=== PATIENT | female | born 1960 | race Caucasian/White ===

== ENCOUNTER → 2018-02-03 | Outpatient (CLI) | payer BC ==
[~2018-02-03] MED LIST: ADDE20 PO; ADVA250A INH; CLAR5TAB PO; LAMO100T PO; OXYC1TAB63 PO; PERC7.5T13 PO; SERT-129 PO; Z.0.NO CURRENT MEDS
--- NOTE | 2018-02-03 16:41 | RADRPT ---
EXAM DATE/TIME: 02/03/2018 16:27 [place] COMPARISON: No previous studies available for comparison. INDICATIONS : Evaluate for pneumonia, pneumothorax, or communicable disease. Pre op rotator cuff surgery. MEDICAL HISTORY : Asthma. SURGICAL HISTORY : None. ENCOUNTER: Initial ACUITY: 1 day PAIN SCORE: 0/10 LOCATION: Bilateral chest FINDINGS: PA and lateral views of the chest demonstrate the lungs to be symmetrically aerated without evidence of mass, infiltrate or effusion. The cardiomediastinal contours are unremarkable. There is mild comp ression deformity involving a lower thoracic vertebral body of indeterminate age. CONCLUSION: No acute cardiopulmonary disease. Mild compression deformity involving a lower thorac ic vertebral body of indeterminate age. Vladislav Gallegos MD on February 03, 2018 at 16:38 Board Certified Radiologist. This report was verified electronically.
== END ==
LOC: CPRE 15:19
PROVIDERS: ATTEND Orthopaedic Surgery
DX: Z01.811 Encounter for preprocedural respiratory examination (principal); M75.121 Complete rotator cuff tear or rupture of right shoulder, not specified as traumatic
CPT/HCPCS: 71046

== ENCOUNTER → 2018-02-19 | Day surgery (SDC) | payer BC ==
--- NOTE | 2018-02-15 09:14 | MH ---
cc: Walker Garcia MD DATE OF ADMISSION: 02/19/2018 ADMITTING DIAGNOSIS: Complete rotator cuff tear of the right shoulder, subacromial bursitis, right shoulder, biceps tendinosis, right shoulder, pain, right shoulder. HISTORY OF PRESENT ILLNESS: The patient is a 57-year-old white female who has had a lengthy history of pain involving her right shoulder, extending back almost 5 years. At that time, the patient became symptomatic as a result of routine activities without any direct injury to the shoulder area occurring. She has been conforming to conservative management, which included application of a topical liniment that unfortunately did not provide any appreciable benefit. She reported that she was unable to utilize anti-inflammatory medications secondary to a history of ulcer disease for which she was taking Nexium on a p.r.n. basis. She had no associated pain involving her cervical spine. She presented to the undersigned physician in 06/2013 and at that time, her x-ray studies were without evidence of any acute or chronic bony abnormality. The patient was diagnosed as having subacromial bursitis for which she was treated with a local steroid injection and thereafter followed on an outpatient basis. She returned to the office in 11/2014, reporting that she had a favorable response from the injection that was completed at that time and had done well for a number of months until she began to note recurrent pain generalized about the shoulder area. 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 Apparently, this activity tended to aggravate her ongoing discomfort about the shoulder area. Based upon her previous benefit from injection, the patient had requested a repeat injection in the hope that she might be able to experience a similar degree of improvement about her symptoms. In compliance with her request, she did receive a repeat injection that gave her temporary relief of her discomfort. She once again returned to the office in 05/2015, reporting ongoing pain about the shoulder area and at that time, it was recommended that she proceed with an MRI scan evaluation. Subsequent diagnostic testing in this regard identified a full-thickness tear of the distal supraspinatus tendon at its insertion associated with tendinosis involving the remaining portion of the supraspinatus tendon with additional involvement of the infraspinatus and biceps tendon area. There was moderate acromioclavicular joint arthrosis and subacromial bursitis. These findings were reviewed with the patient and treatment options discussed. The pros and cons of continuing with conservative management versus operative intervention that would involve an acromioplasty of the right shoulder with an attempted mini open rotator cuff repair was reviewed. Emphasis was made regarding the fact that the decision to proceed with surgery would be left entirely to the patient's discretion. At the same time, the potential long-term benefit of an ignored rotator cuff lesion was outlined. The patient indicated her full understanding in this regard. Initially, she elected to continue with conservative management, describing a waxing and waning of pain about the shoulder area that did gradually become more symptomatic with the passage of time. She once again returned to the office in June of this past year and at that time requested a repeat injection in the hope that additional improvement of her symptoms would be noted. Emphasis was made regarding the fact that this was not considered to be the ideal course of management for her ongoing condition. The patient presented to the office in 10/2017, reporting that the last injection afforded her no more than about 1 month of pain relief and her symptoms recurred with residual pain, generalized about the shoulder area that was interfering with her ability to conform to daily activities, as well as sleeping comfortably through the night. At that time, the patient felt that she was ready to proceed with operative intervention as had previously been discussed and in compliance with her wishes, she has currently been scheduled for admission in order that the above be accomplished. PAST MEDICAL HISTORY/HOSPITALIZATIONS AND SURGERIES: Have included a right total knee arthroplasty, tonsillectomy, bilateral LASIK surgery of the eyes, gastric evaluation for suspected ulcer disease, laparoscopic banding x 2 with sleeve insertion, colonoscopy and herniorrhaphy. MEDICAL ILLNESSES: Include asthma and anxiety disorder. MEDICATIONS: Current medications: Advair 250/50 two puffs daily, Clarinex 5 mg daily, Adderall 20 mg daily, sertraline 100 mg 2 pills daily, Lamotrigine 100 mg daily, clonazepam 1 mg daily, hydrocodone 7.5 mg p.r.n. ALLERGIES: The patient notes a drug allergy to SULFA WHICH HAS BEEN ASSOCIATED WITH RASH FORMATION. MORPHINE HAS CAUSED GASTRIC CRAMPS. There is an additional allergy to RED DYE CAUSING SNEEZING and LATEX CONDOMS HAVE CAUSED A RASH WITHIN THE VAGINAL AREA. REVIEW OF SYSTEMS: No headache, seizure, or syncope. No sinus congestion or epistaxis. Auditory acuity intact. No tinnitus. No bleeding gums or dysphagia. Occasional shortness of breath related to asthmatic condition. No cough, pneumonia, tuberculosis. No angina or heart disease. Occasional indigestion. Appetite is good. Bowel movements regular. No hepatitis, gallbladder disease, ulcers or hemorrhoids, urinary frequency with no history of urinary tract infection, no kidney stones. No history of fractures. No psychiatric illness other than anxiety and depression. Remaining review of systems is unremarkable and noncontributory. FAMILY HISTORY: 16 years. She has 2 daughters, both described as being in good health. FAMILY HISTORY: Positive for hypertension, colon cancer, breast cancer and lung cancer. SOCIAL HISTORY: The patient has been retired for the past year from the [employer] service. She attended college with credits achieved, but no graduate degree. Denies active use of tobacco for more than 30 years, but had been a 1 pack per day user for almost 5 years in the past. Ethanol consumption in the form of an occasional cocktail. PHYSICAL EXAMINATION: VITAL SIGNS: Height 5 feet, weight 176 pounds. GENERAL: This is an alert, oriented, responsive 57-year-old white female who sits quietly upon the examination table with no apparent distress. HEAD, EARS, EYES, NOSE, AND THROAT: Pupils are equal, round and reactive to light. Extraocular movements full. Sclerae are clear. External nares clear. External auditory canals clear. Dental intact. Mucous membranes pink and moist. Pharynx clear. NECK: Supple. Active range of motion with no appreciable pain. Carotid pulse is palpable bilaterally. Trachea midline. Thyroid without enlargement. LUNGS: Clear to auscultation and percussion. No CVA tenderness. No discomfort throughout the dorsolumbar spine. HEART: Regular rhythm. No murmur or gallop. ABDOMEN: Soft, nontender, bowel sounds present. PELVIC: Per primary care physician. EXTREMITIES: Right shoulder, there is mild tenderness about the shoulder area without palpable deformity. Limited mobility at the extremes of motion as the patient attempts to actively posture her right hand above her head. Internal rotation is limited to the posterior waist level. Pain at the extreme of cross arm positioning of right hand to left shoulder. Drop arm test positive. Davis sign positive. Weakness of external rotation. Belly press negative. Consumer Loan Manager strength intact. Sensory intact. NEUROLOGIC: Cranial nerves 2 through 12 grossly intact. IMPRESSION: Complete rotator cuff tear, right shoulder, subacromial bursitis, right shoulder, biceps tendinosis, right shoulder, pain, right shoulder. PLAN: Acromioplasty right shoulder with an attempt at mini open rotator cuff repair. The nature of the planned surgical procedure, the potential complications and risks associated, the expectations of surgery and the consent form were thoroughly reviewed with the patient prior to her admission to the hospital. Clair has indicated her full understanding regarding all of the above and given consent to proceed with treatment as outlined. Medical evaluation and clearance for surgery will be completed by her primary care physician, Dr. Mccall. Walker Garcia MD NBS/TL , 08:26 AM , 09:13 AM
[~2018-02-19] VITALS: Ht 152.4 cm; Wt 88.5 kg
[~2018-02-19] MED LIST changes: +ACETAMINOPHEN 1000 MG/100 ML 100 ML IV ONE; +ACETAMINOPHEN/HYDROcodone 325 MG/7.5 MG TAB PO PRN; +BUPIVACAINE LIPOSO 1.3% NERV BLOCK PRN; +BUPIVACAINE LIPOSOME PF 1.3% 20 ML VIAL ONE; +CEFAZOLIN INJ 2,000 MG in SODIUM CHLORIDE 0.9% INJ 100 ML IV PRN; +CHLORHEXIDINE GLUCONATE 2 % 1 PACK (2 CLOTHS) TOPICAL PRN; +CLON0.5T PO; +DEXAMETHASONE SOD PHOS 4 MG/ML VIAL IV ONE; +DO NOT ADM ANY ANTICOAGULANT DRUGS PRN; +FAMOTIDINE 20 MG/2 ML VIAL ONE; +FAT EMULSION 20% INJ 0 ML ONE; +FISHCAP4 PO; +GLYCOPYRROLATE 1 MG/5 ML SYRINGE IV PUSH ONE; +KETOROLAC TROMETHAMINE 30 MG/ML (IVP) VIAL IV PUSH ONE; +LACTATED RINGER'S 1000 ML INJ 1,000 ML IV ONE; +LACTATED RINGER'S 1000 ML IV PRN; +LIDOCAINE HCL 1% PF 5 ML SYRINGE OTHER ONE; +MEPERIDINE HCL 50 MG/ML VIAL IM PRN; +METOPROLOL TARTRATE 25 MG TAB PO PRN; +MIDAZOLAM HCL 2 MG/2 ML VIAL ONE; +MIDAZOLAM HCL 5 MG/ML VIAL (1 ML) IV PRN; +NEOSTIGMINE 5 MG/5 ML SYRINGE IV PUSH ONE; +ONDANSETRON HCL 4 MG/2 ML VIAL IV ONE; -PERC7.5T13 PO; +PHENYLEPH/NS 1000 MCG/10 ML SYR IV ONE; +POVIDONE IODINE 5% (ANTISEPSIS KIT) 4 APPLICATIONS EACH NARE PRN; +POVIDONE IODINE 7.5% SCRUB 118 ML BOTTLE TOPICAL SCH; +PROMETHAZINE INJ 25 MG/ML VIAL IM PRN; +PROPOFOL 200 MG/20 ML AMP IV ONE; +ROCURONIUM INJ 50 MG/5 ML SYRINGE IV PUSH ONE; +SODIUM CHLORID 0.9% 500 ML IV PRN; +SODIUM CHLORIDE 0.9% NERV BLOCK PRN; -Z.0.NO CURRENT MEDS; +ceFAZolin INJ 1,000 MG VIAL ONE; +ePHEDrine/NS 25 MG/5 ML SYRINGE IV ONE
--- NOTE | 2018-02-19 09:02 | MP ---
cc: Walker Garcia MD DATE OF OPERATION: 02/19/2018 DATE OF OPERATION: 02/19/2018 PREOPERATIVE DIAGNOSES: Complete rotator cuff tear of the right shoulder, subacromial bursitis right shoulder, biceps tendinosis right shoulder and pain of the right shoulder. POSTOPERATIVE DIAGNOSES: Complete rotator cuff tear of the right shoulder, subacromial bursitis right shoulder, biceps tendinosis right shoulder and pain of the right shoulder. PROCEDURE PERFORMED: Acromioplasty right shoulder with mini open rotator cuff repair. SURGEON: Walker Garcia MD ANESTHESIA: General endotracheal. DESCRIPTION OF PROCEDURE: Following induction of satisfactory general anesthesia via endotracheal intubation as completed per the Department of Anesthesia, the patient was positioned upon the operating table in a modified beach chair configuration. The right shoulder and upper extremity proper were isolated with a U-drape, thereafter being prepped with Betadine solution and draped into a sterile field in the routine manner. Prior to initiation of the actual procedure, the standard timeout protocol was completed. All parameters were appropriately addressed and confirmed by operating room personnel. A sharp skin incision was initiated over the superior aspect of the shoulder, along the palpable prominence of the acromion and developed through underlying subcutaneous tissue with hemostasis maintained by electrocautery. By deepening the dissection, the underlying deltoid musculature was exposed along its anterior raphe, the deltoid was divided in a medial to lateral orientation facilitating entry into the subacromial space. Proliferative synovium was encountered. There was hypertrophy along the anterior margin of the acromion, consistent with an impingement phenomenon. An oblique osteotomy of the anterior inferior margin of the acromion was completed with power saw, the undersurface of which was contoured with bone rasp. Visual and digital inspection confirmed an adequate decompression within the confines of the subacromial space. A vertical tear of the supraspinatus tendon was identified extending from the footplate region to the mid portion of the joint space. The margins of the tear were sharply debrided and thereafter mobilized, and a primary repair completed utilizing interrupted #1 Ethibond suture. Upon completion of the repair, the shoulder was carried through a passive range of motion and stability of the rotator cuff was noted with no evidence of residual impingement. The wound was copiously irrigated with antibiotic saline solution. The deltoid thereafter repaired with interrupted Ethibond suture. The remaining portion of the wound closed in layers in the routine manner, skin margins being reapproximated with a running subcuticular 3-0 Vicryl suture, over which Steri-Strips were applied. Xeroform gauze and a bulky dry sterile dressing were placed. The extremity being supported in an arm sling, anesthesia was discontinued, she was thereafter transferred to a hospital stretcher, and returned to the recovery room in satisfactory condition, having tolerated her operative procedure well. Estimated blood loss was approximately 25 mL. Walker Garcia MD NBS/KD , 08:39 AM , 09:02 AM
[2018-02-19 09:49] VITALS: BP 122/61; PULSE 67; RESP 18; TEMP 96.8; O2SAT 97
== END | disposition home or self-care (01) ==
LOC: HSDC 05:08
PROVIDERS: ATTEND Orthopaedic Surgery
DX: M75.121 Complete rotator cuff tear or rupture of right shoulder, not specified as traumatic (principal); M75.51 Bursitis of right shoulder; F41.9 Anxiety disorder, unspecified; J45.909 Unspecified asthma, uncomplicated
CPT/HCPCS: 01630; 23420; 64418; C9290; J0131; J0690; J1100; J1885; J2250; J2370; J2405; J2710; J3010; J7120